=== PATIENT | male | born 2000 | race American Indian/Alaskan Native ===

== ENCOUNTER 2018-01-25 15:37 | Emergency (ER) | payer SELFPAY ==
[2018-01-25] MEDS ORDERED: XANAX PO ONE (16:54)
--- NOTE | 2018-01-25 16:54 | Emergency Department Report ---
[facility] Doc - Documentation Documentation: Patient is a 17-year-old male who has a past medical history of an enlarged heart according to him who is coming in with a week of sharp chest pains. Patient states it feels like his heart is racing as well and he thinks the pain is making him anxious. Patient gets sweaty palms as well. The patient denies any cough shortness of breath at this time. EKG shows sinus tachycardia 107 but other abnormality. Chest x-ray will be performed because of the patient's history of possible enlarged heart I am going to add a troponin just to rule out ID. The patient denies any caffeine supplements of drug use at this time however this may not be true. Also will add a d-dimer secondary to the patient's tachycardia.
--- NOTE | 2018-01-25 18:51 | XRay Report ---
FINAL REPORT PROCEDURE: XR CHEST ROUTINE 2V TECHNIQUE: PA lateral chest HISTORY: cough COMPARISON: No prior studies are available for comparison. FINDINGS: Mild peribronchial cuffing suggesting mild central bronchitis. No pneumonia or consolidation. Heart is not enlarged. No effusion or infiltrate. IMPRESSION: Mild central bronchitis.
--- NOTE | 2018-01-25 20:50 | Emergency Department Report ---
ED Chest Pain HPI - General Chief Complaint: Chest Pain Stated Complaint: CHEST PAIN Time Seen by Provider: 01/25/18 16:47 Source: patient Mode of arrival: Ambulatory Limitations: No Limitations - History of Present Illness Initial Comments: Patient is a 17-year-old [place] male who is presenting with chest pain. Patient states is sharp pleuritic pain diffuse in the chest is depressed for approximately a week. Patient does have bouts where he feels like his heart speeding up and his hands and swelling. Patient denies any cough or shortness of breath fevers chills nausea vomiting at this time. Patient states he has a history of an enlarged heart - Related Data Previous Rx's Medication Instructions Recorded Last Taken Type Ibuprofen [Motrin 800 MG tab] 800 mg PO Q8HR PRN #30 tablet 04/15/16 Unknown Rx Allergies Allergy/AdvReac Type Severity Reaction Status Date / Time No Known Allergies Allergy Unverified 12/16/14 22:04 Heart Score - HEART Score History: Slightly suspicious EKG: Normal Age: < 45 Risk factors: No known risk factors Troponin: < normal limit HEART Score: 0 ED Review of Systems ROS: Stated complaint: CHEST PAIN Other details as noted in HPI Comment: All other systems reviewed and negative ED Past Medical Hx - Past Medical History Additional medical history: enlarged heart on one side - Social History Smoking Status: Current Every Day Smoker Substance Use Type: Marijuana - Medications Home Medications: Home Medications Medication Instructions Recorded Confirmed Last Taken Type Ibuprofen [Motrin 800 MG tab] 800 mg PO Q8HR PRN #30 tablet 04/15/16 Unknown Rx ED Physical Exam - General Limitations: No Limitations General appearance: alert, in no apparent distress - Head Head exam: Present: atraumatic, normocephalic - Eye Eye exam: Present: normal appearance - ENT ENT exam: Present: mucous membranes moist - Neck Neck exam: Present: normal inspection - Respiratory Respiratory exam: Present: normal lung sounds bilaterally. Absent: respiratory distress - Cardiovascular Cardiovascular Exam: Present: regular rate, normal rhythm. Absent: systolic murmur, diastolic murmur, rubs, gallop - GI/Abdominal GI/Abdominal exam: Present: soft, normal bowel sounds - Rectal Rectal exam: Present: deferred - Extremities Exam Extremities exam: Present: normal inspection - Back Exam Back exam: Present: normal inspection - Neurological Exam Neurological exam: Present: alert, oriented X3 - Psychiatric Psychiatric exam: Present: normal affect, normal mood - Skin Skin exam: Present: warm, dry, intact, normal color. Absent: rash ED Course Vital Signs 01/25/18 15:39 Temperature 97.9 F Pulse Rate 124 H Respiratory 18 Rate Blood Pressure 118/82 O2 Sat by Pulse 100 Oximetry ED Medical Decision Making - Lab Data Lab Results 01/25/18 01/25/18 Range/Units 17:15 17:15 D-Dimer 136.45 (0-234) ng/mlDDU Troponin T < 0.010 (0.00-0.029) ng/mL - EKG Data -: EKG Interpreted by Me - EKG Data Interpretation: other 01/25/18 20:49 Patient's EKG shows sinus tachycardia 1070 axis normal intervals and no ST segment elevations or depressions time interpretations 1555. Critical care attestation.: If time is entered above; I have spent that time in minutes in the direct care of this critically ill patient, excluding procedure time. ED Disposition Clinical Impression: Atypical chest pain, Anxiety reaction Disposition: DC-01 TO HOME OR SELFCARE Is pt being admited?: No Does the pt Need Aspirin: No Condition: Stable Instructions: Chest Pain (ED), Anxiety (ED) Referrals: PRIMARY CARE, [Primary Care Provider] - 3-5 Days
[2018-01-25 21:03] VITALS: BP 121/86
== END 2018-01-25 21:02 | disposition home or self-care (01) ==
LOC: ED 15:37
DX: R07.89 Other chest pain (principal); F41.9 Anxiety disorder, unspecified; F17.200 Nicotine dependence, unspecified, uncomplicated
CPT/HCPCS: 36415; 71046; 84484; 85379; 93005; 93010; 99283